=== PATIENT | female | born 1995 | race Two or more races ===

== ENCOUNTER 2017-08-08 12:54 | Emergency (ER) | payer OTHER ==
[~2017-08-08] VITALS: Ht 162.6 cm; Wt 72.6 kg
[2017-08-08 16:01] VITALS: BP 118/77
== END 2017-08-08 16:22 | disposition home or self-care (01) ==
LOC: ED 12:54
DX: H66.42 Suppurative otitis media, unspecified, left ear (principal); B34.9 Viral infection, unspecified